=== PATIENT | male | born 1955 | race Caucasian/White ===

== ENCOUNTER 2020-12-14 08:20 | Emergency (ER) | payer BC, OTHER ==
[2020-12-14] MEDS ORDERED: Ketorolac 15 MG/ML SDV IVPUSH STA (09:12)
[2020-12-14] MEDS ORDERED: Famotidine 20 MG/2 ML SDV IVPUSH ONE (09:12)
--- NOTE | 2020-12-14 09:14 | EDM.PDOC ---
ED HPI GENERAL MEDICAL PROBLEM - General Chief Complaint: Abdominal Pain Stated Complaint: PAIN UNDER RIGHT RIB CAGE Time Seen by Provider: 12/14/20 08:21 Source of Information: Reports: Patient History Limitations: Reports: No Limitations - History of Present Illness INITIAL COMMENTS - FREE TEXT/NARRATIVE: 65-year-old male presents for right upper quadrant abdominal pain. Past surgical history of hernia repair. Still has his gallbladder. Patient notes that a couple of days ago he accidentally ate some egg which he has a mild allergy to. He has noted ever since that food seems to exacerbate his pain in his right upper quadrant abdomen. It is associated with mild nausea but no vomiting. He also notes that he drinks a lot of soda and that lately he has felt the soda following up in the back of his throat. He notes a long history of GERD. He notes that this is helped with omeprazole. - Related Data Allergies Allergy/AdvReac Type Severity Reaction Status Date / Time egg Allergy Abdominal Verified 12/14/20 08:53 Pain minerals [From [employer]vi[employer]] Allergy Wheezing Verified 12/14/20 08:53 mold Allergy Wheezing Verified 12/14/20 08:53 peanut Allergy Abdominal Verified 12/14/20 08:51 Pain soybean Allergy Abdominal Verified 12/14/20 08:53 Pain vitamin B complex and C Allergy Wheezing Verified 12/14/20 08:53 [From [employer]] vitamin E (d-alpha Allergy Wheezing Verified 12/14/20 08:53 tocopherol) [From [employer]] Home Meds: Home Meds Albuterol/Ipratropium [Combivent Respimat] 12/14/20 [History] Pseudoephedrine HCl [Sudafed] 12/14/20 [History] Past Medical History Respiratory History: Reports: Asthma Gastrointestinal History: Reports: Other (See Below) Other Gastrointestinal History: several food allergies that cause abdominal pain Musculoskeletal History: Reports: Arthritis - Infectious Disease History Infectious Disease History: Reports: Chicken Pox, Measles Social & Family History - Family History Family Medical History: No Pertinent Family History - Tobacco Use Tobacco Use Status *Q: Never Tobacco User - Caffeine Use Caffeine Use: Reports: Soda Caffeine Use Comment: 2-3 soda per day - Recreational Drug Use Recreational Drug Use: No ED ROS GENERAL - Review of Systems Review Of Systems: Comprehensive ROS is negative, except as noted in HPI. ED EXAM, GENERAL - Physical Exam Exam: See Below Exam Limited By: No Limitations General Appearance: Alert, WD/WN, No Apparent Distress Ears: Hearing Grossly Normal Throat/Mouth: Normal Voice, No Airway Compromise Head: Atraumatic, Normocephalic Neck: Normal Inspection Respiratory/Chest: No Respiratory Distress, Lungs Clear, Normal Breath Sounds, No Accessory Muscle Use Cardiovascular: Normal Peripheral Pulses, Regular Rate, Rhythm GI/Abdominal: Soft, Non-Tender Extremities: Normal Inspection Neurological: Alert, Normal Cognition, Normal Gait Psychiatric: Normal Affect, Normal Mood Skin Exam: Warm, Dry, Intact, Normal Color Course - Vital Signs Last Recorded V/S: Last Vital Signs Temp 97.5 F 12/14/20 08:58 Pulse 96 12/14/20 08:58 Resp 16 12/14/20 08:58 BP 135/84 12/14/20 08:58 Pulse Ox 98 12/14/20 08:58 - Orders/Labs/Meds Orders: Active Orders 24 hr Category Date Time Status Saline Lock Insert [OM.PC] Stat Oth 12/14/20 09:12 Ordered Labs: Laboratory Tests 12/14/20 12/14/20 Range/Units 10:05 10:05 WBC 7.99 (4.0-11.0) K/uL RBC 4.95 (4.50-5.90) M/uL Hgb 16.1 (13.0-17.0) g/dL Hct 45.8 (38.0-50.0) % MCV 92.5 (80.0-98.0) fL MCH 32.5 H (27.0-32.0) pg MCHC 35.2 (31.0-37.0) g/dL RDW Std Deviation 47.2 (28.0-62.0) fl RDW Coeff of Rhina 14 (11.0-15.0) % Plt Count 205 (150-400) K/uL MPV 9.10 (7.40-12.00) fL Neut % (Auto) 71.8 (48.0-80.0) % Lymph % (Auto) 15.8 L (16.0-40.0) % [place] % (Auto) 7.0 (0.0-15.0) % Eos % (Auto) 5.1 (0.0-7.0) % Baso % (Auto) 0.3 (0.0-1.5) % Neut # (Auto) 5.7 (1.4-5.7) K/uL Lymph # (Auto) 1.3 (0.6-2.4) K/uL [place] # (Auto) 0.6 (0.0-0.8) K/uL Eos # (Auto) 0.4 (0.0-0.7) K/uL Baso # (Auto) 0.0 (0.0-0.1) K/uL Nucleated RBC % 0.0 /100WBC Nucleated RBCs # 0 K/uL Sodium 137 (136-148) mmol/L Potassium 4.1 (3.5-5.1) mmol/L Chloride 101 (98-107) mmol/L Carbon Dioxide 23.8 (21.0-32.0) mmol/L BUN 12 (7.0-18.0) mg/dL Creatinine 1.0 (0.8-1.3) mg/dL Est Cr Clr Drug Dosing TNP Estimated GFR (MDRD) > 60.0 ml/min Glucose 106 (74-106) mg/dL Calcium 8.8 (8.5-10.1) mg/dL Total Bilirubin 0.7 (0.2-1.0) mg/dL AST 84 H (15-37) IU/L ALT 108 H (14-63) IU/L Alkaline Phosphatase 54 (46-116) U/L Total Protein 7.1 (6.4-8.2) g/dL Albumin 4.0 (3.4-5.0) g/dL Globulin 3.1 (2.6-4.0) g/dL Albumin/Globulin Ratio 1.3 (0.9-1.6) Lipase 45 L (73-393) U/L Meds: Medications Discontinued Medications Generic Name Dose Route Start Last Admin Trade Name Freq PRN Reason Stop Dose Admin Famotidine 20 mg 12/14/20 09:12 12/14/20 10:06 Famotidine 20 Mg/2 Ml Sdv IVPUSH 12/14/20 09:13 20 mg ONETIME ONE Administration Ketorolac Tromethamine 15 mg 12/14/20 09:12 12/14/20 10:08 Ketorolac 15 Mg/Ml Sdv IVPUSH 12/14/20 09:13 15 mg STAT STA Administration - Re-Assessments/Exams Free Text/Narrative Re-Assessment/Exam: 12/14/20 09:14 Patient's symptoms are concerning for GERD versus gallbladder pathology. Will get labs including right upper quadrant ultrasound of the abdomen. If unremarkable will discharge patient with follow-up for endoscopy. 12/14/20 11:07 Labs and ultrasound are unremarkable. Will refer patient to general surgery for endoscopy. Recommend continue taking omeprazole. Patient understands plan. Departure - Departure Time of Disposition: 11:07 Disposition: Home, Self-Care 01 Condition: Good Clinical Impression: GERD (gastroesophageal reflux disease) Qualifiers: Esophagitis presence: without esophagitis Qualified Code(s): K21.9 - Gastro- esophageal reflux disease without esophagitis - Discharge Information Instructions: Gastroesophageal Reflux Disease, Adult, [id number] Referrals: Perez Abbott MD [Primary Care Provider] - Forms: ED Department Discharge Additional Instructions: Please follow-up with general surgery for endoscopy for more definitive diagnosis. Your labs and ultrasound today were normal. No evidence of gallbladder disease. Please continue taking omeprazole at home. [facility] General Surgery Professional [address], [address] [place] [address] The following information is given to patients seen in the emergency department who are being discharged to home. This information is to outline your options for follow-up care. We provide all patients seen in our emergency department with a follow-up referral. The need for follow-up, as well as the timing and circumstances, are variable depending upon the specifics of your emergency department visit. If you don't have a primary care physician on staff, we will provide you with a referral. We always advise you to contact your personal physician following an emergency department visit to inform them of the circumstance of the visit and for follow-up with them and/or the need for any referrals to a consulting specialist. The emergency department will also refer you to a specialist when appropriate. This referral assures that you have the opportunity for follow-up care with a specialist. All of these measure are taken in an effort to provide you with optimal care, which includes your follow-up. Under all circumstances we always encourage you to contact your private physician who remains a resource for coordinating your care. When calling for follow-up care, please make the office aware that this follow-up is from your recent emergency room visit. If for any reason you are refused follow-up, please contact the [facility] Emergency Department at and asked to speak to the emergency department charge nurse. Please follow up with your primary care physician. If you do not have a primary care physician, see below: [facility] [address], [place] [id number] [facility] [address] [place] [address] [facility] [address] [place] [address] Sepsis Event Note (ED) - Evaluation Sepsis Screening Result: No Definite Risk - Focused Exam Vital Signs: Vital Signs Temp Pulse Resp BP Pulse Ox 12/14/20 08:58 97.5 F 96 16 135/84 98 - My Orders Last 24 Hours: My Active Orders 12/14/20 09:12 Saline Lock Insert [OM.PC] Stat - Assessment/Plan Last 24 Hours: My Active Orders 12/14/20 09:12 Saline Lock Insert [OM.PC] Stat
--- NOTE | 2020-12-14 09:15 | CR ---
INDICATION: Right lower rib cage pain. COMPARISON: None. TECHNIQUE: Portable AP chest. FINDINGS: Normal size cardiac silhouette. Clear lung gray with no evidence of acute pneumonic infiltrates or CHF. No pneumothorax or pleural effusion. IMPRESSION: Negative portable AP chest . Dictated by Amara Plasencia MD @ 12/14/2020 9:14:34 AM (Electronically Signed)
--- NOTE | 2020-12-14 10:46 | US ---
INDICATION: Right upper quadrant abdomen pain TECHNIQUE: Ultrasound abdomen limited. Sonographic images of the right upper quadrant were obtained using chin-scale and color Doppler images. COMPARISON: None FINDINGS: Liver: The liver demonstrates increased echogenicity. No masses. No intrahepatic biliary dilatation. Gallbladder: There is no shadowing calculus, gallbladder wall thickening or pericholecystic fluid.. Common bile duct: 4 mm. Pancreas: Obscured by bowel gas. Right kidney: Normal in size. Normal echotexture and cortex. No masses, stones, or hydronephrosis. Vasculature: Proximal abdominal aorta and IVC are normal. IMPRESSION: Hepatic steatosis. Otherwise, no definite acute abnormality. Dictated by Jose Jaeger MD @ 12/14/2020 10:43:25 AM (Electronically Signed)
[2020-12-14 10:59] LABS: BLOOD UREA NITROGEN,BUN 12 mg/dL (7.0-18.0); CARBON DIOXIDE,CO2 23.8 mmol/L (21.0-32.0); CHLORIDE,CL 101 mmol/L (98-107); GLUCOSE RANDOM 106 mg/dL (74-106); LIPASE 45 U/L (73-393); POTASSIUM,K 4.1 mmol/L (3.5-5.1); SODIUM,NA 137 mmol/L (136-148)
== END 2020-12-14 11:18 | disposition home or self-care (01) ==
LOC: MW.ED 08:20
DX: K21.9 Gastro-esophageal reflux disease without esophagitis (principal); J45.909 Unspecified asthma, uncomplicated; Z88.8 Allergy status to other drugs, medicaments and biological substances; Z91.012 Allergy to eggs; Z91.010 Allergy to peanuts; Z91.048 Other nonmedicinal substance allergy status; Z91.018 Allergy to other foods
CPT/HCPCS: 36415; 71045; 76705; 80053; 83690; 85025; 96374; 96375; 99284; J1885; J3490